=== PATIENT | male | born 1975 | race Caucasian/White ===

== ENCOUNTER 2019-01-28 21:46 | Emergency (ER) | payer OTHER ==
[~2019-01-28] VITALS: Ht 170.2 cm; Wt 89.5 kg
[2019-01-28 21:49] VITALS: BP 125/88
[2019-01-28] MEDS ORDERED: ACETAMINOPHEN 325 MG TABLET PO ONE (22:30)
[2019-01-28] MEDS ORDERED: ACETAMINOPHEN 500 MG TABLET ONE (23:02)
[2019-01-28] MEDS ORDERED: ACETAMINOPHEN 500 MG TABLET PO ONE (23:30)
== END 2019-01-29 | disposition home or self-care (01) ==
LOC: ED 23:45
DX: S16.1XXA Strain of muscle, fascia and tendon at neck level, initial encounter (principal); S40.011A Contusion of right shoulder, initial encounter; S70.01XA Contusion of right hip, initial encounter; S50.01XA Contusion of right elbow, initial encounter; S09.90XA Unspecified injury of head, initial encounter; Z72.89 Other problems related to lifestyle; W00.0XXA Fall on same level due to ice and snow, initial encounter; Y93.89 Activity, other specified; Y92.89 Other specified places as the place of occurrence of the external cause; Y99.8 Other external cause status
CPT/HCPCS: 70450; 72125; 99284